=== PATIENT | female | born 1940 | race Caucasian/White ===

== ENCOUNTER → 2017-08-19 | Outpatient (CLI) | payer MEDICARE, MEDICAID ==
[~2017-08-19] MED LIST: ATOR20TA PO; BENZ0.5T14 PO; CHOL20002 PO; CYAN100L PO; DONE23TA PO; HYDR-2549 PO; IOHEXOL 350 MG/ML 100ML IJ ONE; MEMA10TA PO; MULT-681 PO; NAPR500T31 PO; Paxil PO; RALO60TA10 PO; TRIA50CA40 PO; [UNRECOGNIZED DRUG - CODE] PO
[2017-08-19 16:30] VITALS: BP 150/57
[2017-08-19 17:10] VITALS: BP 120/60
== END | disposition home or self-care (01) ==
LOC: Rad HDHVI 16:26
PROVIDERS: ATTEND Internal Medicine Cardiovascular Disease
DX: I71.4 Abdominal aortic aneurysm, without rupture (principal); R16.0 Hepatomegaly, not elsewhere classified; K57.30 Diverticulosis of large intestine without perforation or abscess without bleeding; D25.9 Leiomyoma of uterus, unspecified; I26.99 Other pulmonary embolism without acute cor pulmonale
CPT/HCPCS: 71260; 74177; 82565; 96374; G0463; Q9967

== ENCOUNTER 2017-08-20 19:37 | Inpatient (IN) | payer MEDICARE, MEDICAID ==
[~2017-08-20] VITALS: Ht 162.6 cm; Wt 66.2 kg
[~2017-08-20 19:37] MED LIST changes: -IOHEXOL 350 MG/ML 100ML IJ ONE
[2017-08-20] MEDS ORDERED: ENOXAPARIN SOD 30 MG/0.3 ML SYRINGE IV ONE (21:00)
[2017-08-20] MEDS ORDERED: MORPHINE SULFATE 4 MG/ML SYR/VIAL IV PRN (21:00)
[2017-08-20] MEDS ORDERED: NITROGLYCERIN 0.4 MG SL TAB SL PRN (21:00)
[2017-08-20 22:02] VITALS: BP 114/67
[2017-08-20] MEDS: RIVAROXABAN 15 MG TAB PO SCH (22:08)
[2017-08-20 22:30] VITALS: BP 114/67
[2017-08-21 05:00] VITALS: BP 120/73
[2017-08-21] MEDS: OXYCODONE W/ ACETAMINOPHEN 5/325MG TABLET PO PRN ×3 (05:20→20:17)
[2017-08-21] MEDS: LEVOTHYROXINE SODIUM 100 MCG TAB PO SCH (06:23)
[2017-08-21 06:51] LABS: BUN/Creatinine Ratio 28.6
[2017-08-21 08:00] VITALS: BP 116/66
[2017-08-21 09:00] VITALS: BP 113/66
[2017-08-21] MEDS: RIVAROXABAN 15 MG TAB PO SCH ×2 (09:57→20:22)
[2017-08-21] MEDS: RALOXIFENE HCL 60 MG TAB PO SCH (09:57)
[2017-08-21] MEDS: PARoxetine 20 MG TAB PO SCH (09:58)
[2017-08-21] MEDS: amLODIPine BESYLATE 5 MG TAB PO SCH ×2 (09:58→20:18)
[2017-08-21] MEDS ORDERED: amLODIPine BESYLATE 5 MG TAB PO SCH (10:00)
[2017-08-21 13:00] VITALS: BP 108/60
[2017-08-21 17:00] VITALS: BP 119/69
[2017-08-21 22:00] VITALS: BP 114/71
[2017-08-22] MEDS: OXYCODONE W/ ACETAMINOPHEN 5/325MG TABLET PO PRN ×2 (05:14→15:45)
[2017-08-22 05:15] VITALS: BP 120/69
[2017-08-22] MEDS: LEVOTHYROXINE SODIUM 100 MCG TAB PO SCH (06:20)
[2017-08-22 08:00] VITALS: BP 132/70
[2017-08-22 09:00] VITALS: BP 132/70
[2017-08-22] MEDS: PARoxetine 20 MG TAB PO SCH (10:32)
[2017-08-22] MEDS: amLODIPine BESYLATE 5 MG TAB PO SCH ×2 (10:32→21:23)
[2017-08-22] MEDS: RIVAROXABAN 15 MG TAB PO SCH ×2 (10:33→21:22)
[2017-08-22] MEDS: RALOXIFENE HCL 60 MG TAB PO SCH (10:33)
[2017-08-22 13:00] VITALS: BP 92/54
[2017-08-22 17:00] VITALS: BP 100/67
[2017-08-22 22:00] VITALS: BP 114/65
[2017-08-23 05:31] VITALS: BP 135/75
[2017-08-23] MEDS: OXYCODONE W/ ACETAMINOPHEN 5/325MG TABLET PO PRN (05:32)
[2017-08-23] MEDS: LEVOTHYROXINE SODIUM 100 MCG TAB PO SCH (06:38)
[2017-08-23 09:00] VITALS: BP 124/75
[2017-08-23] MEDS: RIVAROXABAN 15 MG TAB PO SCH (10:25)
[2017-08-23] MEDS: amLODIPine BESYLATE 5 MG TAB PO SCH (10:26)
[2017-08-23] MEDS: RALOXIFENE HCL 60 MG TAB PO SCH (10:26)
[2017-08-23] MEDS: PARoxetine 20 MG TAB PO SCH (10:26)
[2017-08-23 13:00] VITALS: BP 115/69
== END 2017-08-23 16:00 | disposition home or self-care (01) | DRG 175 ==
LOC: CENTRAL 19:37 → TELE-CENTR 22:29
PROVIDERS: ADMIT Internal Medicine Cardiovascular Disease; ATTEND Internal Medicine Cardiovascular Disease
DX: I26.09 Other pulmonary embolism with acute cor pulmonale (principal); I27.20 Pulmonary hypertension, unspecified; I11.9 Hypertensive heart disease without heart failure; J44.9 Chronic obstructive pulmonary disease, unspecified; R16.0 Hepatomegaly, not elsewhere classified; D25.9 Leiomyoma of uterus, unspecified; M19.90 Unspecified osteoarthritis, unspecified site; K57.30 Diverticulosis of large intestine without perforation or abscess without bleeding; Z79.01 Long term (current) use of anticoagulants; Z86.79 Personal history of other diseases of the circulatory system; Z91.19 Patient's noncompliance with other medical treatment and regimen
CPT/HCPCS: 36415; 71260; 74177; 80048; 82565; 96374; G0463

== ENCOUNTER → 2017-09-06 | Outpatient (CLI) | payer MEDICARE, MEDICAID | END | disposition home or self-care (01) | LOC: Rad HDHVI 14:40 | PROVIDERS: ATTEND Internal Medicine Cardiovascular Disease | DX: I08.1 Rheumatic disorders of both mitral and tricuspid valves (principal); I10 Essential (primary) hypertension; I71.4 Abdominal aortic aneurysm, without rupture | CPT/HCPCS: 93306 ==

== ENCOUNTER → 2018-03-03 | Outpatient (CLI) | payer MEDICARE, MEDICAID ==
[~2018-03-03] MED LIST changes: +IOHEXOL 350 MG/ML 100ML IJ ONE
[2018-03-03 15:00] VITALS: BP 127/65
[2018-03-03 15:35] VITALS: BP 109/62
== END | disposition home or self-care (01) ==
LOC: Rad HDHVI 14:53
PROVIDERS: ATTEND Internal Medicine Cardiovascular Disease
DX: I25.10 Atherosclerotic heart disease of native coronary artery without angina pectoris (principal); R91.1 Solitary pulmonary nodule
CPT/HCPCS: 71275; 82565; G0463; Q9967

== ENCOUNTER → 2018-03-14 | Outpatient (CLI) | payer MEDICARE, MEDICAID ==
[~2018-03-14] MED LIST changes: -IOHEXOL 350 MG/ML 100ML IJ ONE
== END | disposition home or self-care (01) ==
LOC: Rad HDHVI 14:08
PROVIDERS: ATTEND Internal Medicine Cardiovascular Disease
DX: I71.6 Thoracoabdominal aortic aneurysm, without rupture (principal)
CPT/HCPCS: 93306

== ENCOUNTER → 2018-04-08 | Outpatient (CLI) | payer MEDICARE, MEDICAID ==
[~2018-04-08] VITALS: Ht 162.6 cm; Wt 57.6 kg
== END | disposition home or self-care (01) ==
LOC: Rad HDHVI 10:01
PROVIDERS: ATTEND Internal Medicine Cardiovascular Disease
DX: I26.99 Other pulmonary embolism without acute cor pulmonale (principal); E78.2 Mixed hyperlipidemia; I11.0 Hypertensive heart disease with heart failure; I50.42 Chronic combined systolic (congestive) and diastolic (congestive) heart failure
CPT/HCPCS: 78452; 93017; 96374; A9500